=== PATIENT | female | born 1960 | race Caucasian/White ===

== ENCOUNTER → 2017-09-28 | Outpatient (CLI) | payer OTHER | LOC: BMCIMAGING 17:43 | PROVIDERS: ATTEND Family Medicine | DX: M25.512 Pain in left shoulder (principal); M25.522 Pain in left elbow; M25.532 Pain in left wrist; W19.XXXA Unspecified fall, initial encounter; R93.8 Abnormal findings on diagnostic imaging of other specified body structures ==

== ENCOUNTER → 2017-10-10 | Outpatient (CLI) | payer OTHER | LOC: BMCIMAGING 10:15 | PROVIDERS: ATTEND Physician Assistant | DX: R07.81 Pleurodynia (principal); M41.85 Other forms of scoliosis, thoracolumbar region; M41.84 Other forms of scoliosis, thoracic region ==

== ENCOUNTER → 2017-10-24 | Outpatient (CLI) | payer OTHER | LOC: BMCIMAGING 13:13 | PROVIDERS: ATTEND Physician Assistant | DX: S42.262D Displaced fracture of lesser tuberosity of left humerus, subsequent encounter for fracture with routine healing (principal) ==

== ENCOUNTER → 2018-02-13 | Outpatient (CLI) | payer OTHER | LOC: BMCIMAGING 10:11 | PROVIDERS: ATTEND Physician Assistant | DX: S42.262D Displaced fracture of lesser tuberosity of left humerus, subsequent encounter for fracture with routine healing (principal); M75.42 Impingement syndrome of left shoulder ==

== ENCOUNTER 2018-08-03 06:35 | Emergency (ER) | payer OTHER ==
--- NOTE | 2018-08-03 06:43 | EDPHY ---
H & P Stated Complaint: CP, PRESSURE SINCE [place] Time Seen by Provider: 08/03/18 06:42 - Personal History Current Tetanus Diphtheria and Acellular Pertussis (TDAP): Yes - Medical/Surgical History Hx Asthma: No Hx Chronic Respiratory Disease: No Hx Diabetes: No Hx Cardiac Disease: No Hx Renal Disease: No Hx Cirrhosis: No Hx Alcoholism: No Hx HIV/AIDS: No Hx Splenectomy or Spleen Trauma: No Other PMH: hypothyroid, mixed connective tissue disease, SCLERADERMA, PERICARDITIS - Social History Smoking Status: Never smoked Constitutional: Initial Vital Signs Temperature (C) 36.6 C 08/03/18 06:40 Heart Rate 100 08/03/18 06:40 Respiratory Rate 16 08/03/18 06:40 Blood Pressure 139/69 H 08/03/18 06:40 O2 Sat (%) 98 08/03/18 06:40 O2 Delivery Mode Room Air Allergies/Adverse Reactions: aspirin Allergy (Verified 02/18/15 12:44) ibuprofen [From Advil] Allergy (Verified 02/18/15 12:44) Sulfa (Sulfonamide Antibiotics) Allergy (Verified 02/18/15 12:44) Home Medications: Medication Instructions Recorded Cellcept 08/03/18 Colchicine [Colchicine (*)] 0.6 mg PO BID #30 tab 08/03/18 Synthroid 08/03/18 oxyCODONE IR [Oxycodone Ir (*)] 5 - 10 mg PO Q6 PRN #20 tab 08/03/18 Medical Decision Making - Diagnostics Imaging Results: Imaging Impressions Chest X-Ray 08/03/18 07:27 Impression: 1. Suspect airways disease with no superimposed acute abnormality identified. 2. See above report for additional findings. Imaging: Discussed imaging studies w/ manuscripts curator Radiologist, I viewed and interpreted images myself ED Course/Re-evaluation: CHIEF COMPLAINT: Chest pressure HISTORY OF PRESENT ILLNESS: 58-year-old female with a past medical history significant for scleroderma who is on CellCept. She developed chest pain at around midnight. The pain is a pressure in nature. She denies any sharp stabbing pain. She denies any associated symptoms including no shortness of breath, nausea, vomiting, lightheadedness, dizziness, syncope, radiation. The pressures stays right in the center of her chest. It is significantly relieved by leaning forward and worsened when lays back. It does remind her of a prior episode of pericarditis about 5 years ago. Although she has an ibuprofen an aspirin allergy she does take Aleve and took an Aleve around 2 or 3:00 a.m. and it has helped slightly. REVIEW OF SYSTEMS: A comprehensive 10 system review of systems is otherwise negative aside from elements mentioned in the history of present illness and medical decision making. PHYSICAL EXAM: HR, BP, O2 Sat, RR. Temp noted General Appearance: Alert, well hydrated, appropriate, and non-toxic appearing. Head: Atraumatic without scalp tenderness or obvious injury Eyes: Pupils equal, round, reactive to light and accommodation, EOMI, no trauma , no injection. Ears: Clear bilaterally, no perforation, normal landmarks Nose: Atraumatic, no rhinorrhea, clear. Throat: There is no erythema or exudates, no lesions, normal tonsils, mucus membranes moist. Neck: Supple, 2+ carotid upstroke, nontender, no lymphadenopathy. Respiratory: No retractions, no distress, no wheezes, and no accessory muscle use. Lungs are clear to auscultation bilaterally. Cardiovascular: Regular rate and rhythm, no murmurs, friction rub while leaning forward, or gallops. Bilateral carotid, radial, dorsalis pedis, and posterior tibial pulses intact. Good capillary refill all extremities. Gastrointestinal: Abdomen is soft, nontender, non-distended, no masses, no rebound, no guarding, no peritoneal signs. Musculoskeletal: Normal active ROM of all extremities, atraumatic. Neurological: Alert, appropriate, and interactive. The patient has normal DTRs and non-focal cranial nerves, motor, sensory, and cerebellar exam. Skin: No rashes, good turgor, no nodules on palpation. Past medical history: Scleroderma, prior episode of pericarditis Past surgical history: Noncontributory Family history: Noncontributory Social history: , employed, does not abuse tobacco drugs or alcohol DIAGNOSTICS/PROCEDURES/CRITICAL CARE TIME: The 12 lead EKG was interpreted by myself. See hard copy and/or "tracemaster" electronic copy for interpretation. Pathognomonic p.r. Depression in the inferior leads. Sinus. No obvious ischemic changes Chest x-ray: Suspect airways disease with no superimposed acute abnormality identified. Echo: No pleural effusion. Critical care time spent by me, Dr. Ryan, exclusively with this patient was 45 minutes, exclusive of PA time and exclusive of procedures. The organ system at risk was cardiovascular and I gave IVF, pain meds, Colchicine and advised her follow up with her torch solderer and school psychologist to prevent worsening of the patients condition. DIFFERENTIAL DIAGNOSIS: The differential diagnosis for the patient's chest pain included but was not limited to myocardial ischemia, pulmonary embolus, chest wall pain, pericarditis, pleural inflammation, and pulmonary infectious causes. MEDICAL DECISION MAKING: This patient has a fairly classic presentation for pericarditis. She is lacking any prodrome all illness. She has a classic looking EKG regarding p.r. Depression but no diffuse ST elevation. Her symptoms just began about 7 hr ago. I will give this patient 1.2 mg of colchicine and she has already taken Aleve. I will give her 8 mg of Decadron intravenously here. I am checking an ESR and a CRP and a troponin which are all pending. Patient is accompanied at bedside by her . 0725: Patient's troponin is 0. She is still having pain; 1mg IV Dilaudid administered. 0756: Patient's sedimentation rate and CRP are elevated. I will consult the patient's torch solderer at [facility]. 0845: Patient's chest x-ray reveals no acute findings. We are still waiting to hear from the patient's torch solderer. 0855: Reassessed patient and discussed laboratory and imaging studies. She is still in pain; additional 0.5mg IV Dilaudid administered. 0910: I consulted with Dr. Vides, torch solderer from [facility] ([phone]) . Patient will need an Echo; if there s an effusion we will treat her accordingly. She can take Colchicine, NSAID's and her normal medications. 0958: Patient's Echo reveals no pleural effusion. 1000: Reassessed patient and discussed echo findings. I have discussed taking Colchicine and OxyIR as prescribed as well as following up with a school psychologist. Return to precautions provided; patient is comfortable with this plan. 1038: I consulted with Dr. Davis, school psychologist, who reports that there are no acute findings on the Echo. - Data Points Laboratory Results: Laboratory Results 08/03/18 07:00 08/03/18 07:00 08/03/18 08/03/18 08/03/18 07:04 07:00 07:00 WBC 5.39 10^3/uL 10^3/uL (3.80-9.50) RBC 5.27 10^6/uL 10^6/uL (4.18-5.33) Hgb 14.1 g/dL g/dL (12.6-16.3) Hct 44.4 % % (38.0-47.0) MCV 84.3 fL fL (81.5-99.8) MCH 26.8 pg L pg (27.9-34.1) MCHC 31.8 g/dL L g/dL (32.4-36.7) RDW 14.1 % % (11.5-15.2) Plt Count 216 10^3/uL 10^3/uL (150-400) MPV 9.3 fL fL (8.7-11.7) Neut % (Auto) 69.2 % % (39.3-74.2) Lymph % (Auto) 18.7 % % (15.0-45.0) Valley % (Auto) 11.3 % % (4.5-13.0) Eos % (Auto) 0.4 % L % (0.6-7.6) Baso % (Auto) 0.2 % L % (0.3-1.7) Nucleat RBC Rel Count 0.0 % % (0.0-0.2) Absolute Neuts (auto) 3.73 10^3/uL 10^3/uL (1.70-6.50) Absolute Lymphs (auto) 1.01 10^3/uL 10^3/uL (1.00-3.00) Absolute Monos (auto) 0.61 10^3/uL 10^3/uL (0.30-0.80) Absolute Eos (auto) 0.02 10^3/uL L 10^3/uL (0.03-0.40) Absolute Basos (auto) 0.01 10^3/uL L 10^3/uL (0.02-0.10) Absolute Nucleated RBC 0.00 10^3/uL 10^3/uL (0-0.01) Immature Gran % 0.2 % % (0.0-1.1) Immature Gran # 0.01 10^3/uL 10^3/uL (0.00-0.10) ESR 42 MM/HR H MM/HR (0-30) Sodium 138 mEq/L mEq/L (135-145) Potassium 4.0 mEq/L mEq/L (3.5-5.2) Chloride 104 mEq/L mEq/L (97-110) Carbon Dioxide 24 mEq/l mEq/l (22-31) Anion Gap 10 mEq/L mEq/L (6-14) BUN 13 mg/dL mg/dL (7-23) Creatinine 0.7 mg/dL mg/dL (0.6-1.0) Estimated GFR > 60 Glucose 118 mg/dL H mg/dL (70-100) Calcium 9.1 mg/dL mg/dL (8.5-10.4) POC Troponin I 0.00 ng/mL ng/mL (0.00-0.08) C-Reactive Protein 10.4 mg/L H mg/L (<10.0) Medications Given: Discontinued Medications Colchicine (Colchicine) 1.2 mg PO EDNOW ONE Stop: 08/03/18 06:56 Last Admin: 08/03/18 07:03 Dose: 1.2 mg Dexamethasone (Decadron Injection) 8 mg IVP EDNOW ONE Stop: 08/03/18 06:57 Last Admin: 08/03/18 07:03 Dose: 8 mg Hydromorphone HCl (Dilaudid) 1 mg IVP EDNOW ONE Stop: 08/03/18 07:23 Last Admin: 08/03/18 07:28 Dose: 1 mg Hydromorphone HCl (Dilaudid) 0.5 mg IVP EDNOW ONE Stop: 08/03/18 08:57 Last Admin: 08/03/18 09:04 Dose: 0.5 mg Hydromorphone HCl (Dilaudid) 0.5 mg IVP EDNOW ONE Stop: 08/03/18 10:08 Last Admin: 08/03/18 10:08 Dose: 0.5 mg Sodium Chloride (Ns) 500 mls @ 1,000 mls/hr IV EDNOW ONE PRN Reason: Protocol Stop: 08/03/18 07:24 Last Admin: 08/03/18 07:07 Dose: 500 mls Point of Care Test Results: Chemistry 08/03/18 07:04 POC Troponin I 0.00 ng/mL ng/mL (0.00-0.08) Departure - Departure Disposition: Home, Routine, Self-Care Clinical Impression: Pericarditis Qualifiers: Pericarditis type: other type Chronicity: acute Qualified Code(s): I30.8 - Other forms of acute pericarditis Chest pain Qualifiers: Chest pain type: other chest pain Qualified Code(s): R07.89 - Other chest pain Condition: Good Instructions: Chest Pain (ED), Acute Pericarditis (ED) Additional Instructions: 1. Take Colchicine as prescribed. 2. Take OxyIR as prescribed. 3. Follow up with your torch solderer. 4. Return to the Emergency Department for fever, chest pain, shortness of breath , increasing pain or other worsening of condition. 5. Follow up with a school psychologist for further testing, as soon as possible, within one week. 6. As we discussed, it is impossible to fully rule out heart disease as the cause of your chest pain in the emergency department. We would be happy to reevaluate you and observe you in the hospital at any time. Referrals: Alyssa Alamo MD [Primary Care Provider] - As per Instructions Hugh Davis MD [Medical Doctor] - As per Instructions Stand Alone Forms: Work Excuse Prescriptions: Colchicine [Colchicine (*)] 0.6 mg PO BID #30 tab oxyCODONE IR [Oxycodone Ir (*)] 5 - 10 mg PO Q6 PRN #20 tab PRN Reason: Pain, Severe Report Scribed for: Bart Ryan Report Scribed by: Meghna Perrin Date of Report: 08/03/18 Time of Report: 07:26
[2018-08-03] MEDS ORDERED: COLCHICINE 0.6 MG CAP/TAB PO ONE (06:55)
[2018-08-03] MEDS ORDERED: NS 500 ML IV ONE (06:55)
[2018-08-03] MEDS ORDERED: DEXAMETHASONE 10 MG/ML VIAL IVP ONE (06:56)
[2018-08-03 07:12] LABS: PLATELET COUNT 216 10^3/uL (150-400)
[2018-08-03] MEDS ORDERED: HYDROmorphONE/DILAUDID 2 MG/ML INJ IVP ONE ×2 (07:22→08:56)
[2018-08-03] MEDS ORDERED: HYDROmorphONE/DILAUDID 1 MG/ML INJ ONE (10:06)
[2018-08-03] MEDS ORDERED: HYDROmorphONE/DILAUDID 1 MG/ML INJ IVP ONE (10:07)
[2018-08-03 10:17] VITALS: BP 111/66
--- NOTE | 2018-08-03 10:38 | ECHO ---
[email or web address] [address] Main: [phone] Echocardiography Examination Transthoracic Name: JASPER TRENT MR#: Study Date: 08/03/2018 Study Time: 09:40 AM Date of : 1960 Age: 58 year(s) Height: 157.5 cm (62 in.) Weight: 56.7 kg (125 lb.) BSA: 1.57 m2 Gender: Female Examination: Echo Contrast: Image Quality: Adequate Rhythm: Normal sinus rhythm Heart Rate: 86 bpm BP: 111 mmHg/75 mmHg Indication: chest pain; r/o pericardial effusion Procedure Staff Referring Physician: Scale And Skip Car Operator: Galilea Marie [facility] Reading Physician: Hugh Davis MD Requesting Provider: Indication: chest pain; r/o pericardial effusion Measurements Chambers AV/MV Label Value Normal Value Label Value Normal Value IVSd, 2D 0.8 cm (0.6cm - 1.1cm) AV PGmax 4 mmHg LVDd, 2D 3.6 cm (3.9cm - 5.3cm) AV Vmax 1.03 m/s LVDs, 2D 2.3 cm (2.1cm - 4cm) FLETCHER (continuity eq. 2.7 cm2 LVEF, 2D 65 % (54% - 74%) Vmax) LVEF, BP 65 % (55% - 70%) MV A Vmax 0.47 m/s LVEF, MOD2 73 % (55% - 70%) MV DT 109 ms LVEF, MOD4 71 % (55% - 70%) MV E' lateral 0.1 m/s LVOT PGmax 4 mmHg MV E' mean 0.1 m/s LVOT Vmax 0.99 m/s (0.7m/s - 1.1m/s) MV E' septal 0.09 m/s LVOTd 1.9 cm (1.8cm - 2cm) MV E Vmax 0.78 m/s LVPWd, 2D 0.8 cm MV E/A 1.66 RVDd, 2D 3 cm (1.9cm - 3.8cm) MV E/E' lateral 7.8 TAPSE 1.9 cm MV E/E' mean 8.21 LA Area, A2C 15.3 cm2 (0cm2 - 20cm2) MV E/E' septal 8.5 (0.5 - 1.7) LA Volume, A2C 37 ml (22ml - 52ml) TV/PV LA Volume, A4C 23 ml (22ml - 52ml) Label Value Normal Value LA Volume, BP 32 ml (22ml - 52ml) RA Pressure 5 mmHg LAD Index, 2D 1.97 cm/m2 RVSP 32 mmHg LADs, 2D 3.1 cm (2.7cm - 3.8cm) TR Pmax 27 mmHg LAESV index, MOD4 14.6 ml/m2 TR Vmax 2.62 m/s Patient: JASPER TRENT MRN: Study Date: 08/03/2018 Page 1 of 3 09:40 AM RA Area 11.2 cm2 PV PGmax 1 mmHg Additional Vessels PV Vmax, Caliper 0.59 m/s (0.6m/s - 0.9m/s) Label Value Normal Value AoAsc 2.6 cm AoRoot, 2D 2.7 cm (1.4cm - 2.6cm) Conclusions Left Ventricle: CONCLUSIONS:1)Normal LV size and systolic function with a LVEF of 65%.2)Trivial AI with no .3)Mild to moderate MR without MV prolapse.4)Mild TR with estimated normal PA pressures.5)No pericardial effusion noted. Findings Left Ventricle: Left ventricle is normal in size. CONCLUSIONS: 1)Normal LV size and systolic function with a LVEF of 65%. 2)Trivial AI with no . 3)Mild to moderate MR without MV prolapse. 4)Mild TR with estimated normal PA pressures. 5)No pericardial effusion noted. The ejection fraction, measured by Simpsons method, is 65 %. Left ventricle wall thickness is normal. There are no regional wall motion abnormalities. Left ventricular diastolic function parameters are normal. IVS: The septum is intact. Right Ventricle: Normal size right ventricle. Right ventricular wall thickness is normal. Right ventricular systolic function is normal. Left Atrium: The left atrium is normal in size. IAS: Normal appearing atrial septum. Right Atrium: The right atrium is normal in size. Mitral Valve: Normal . Mild to moderate mitral regurgitation. No mitral valve stenosis. Aortic Valve: Aortic leaflets exhibit normal cuspal separation. Trivial aortic regurgitation is present. There is no aortic stenosis. Tricuspid Valve: Tricuspid valve leaflets are normal in appearance and function. Mild tricuspid regurgitation. No tricuspid valve stenosis. Right Ventricular systolic pressure is measured at 32 mmHg. Pulmonary artery pressure normal. Pulmonic Valve: Pulmonic leaflets exhibit normal cuspal separation. No pulmonic valve regurgitation is evident. There is no pulmonic valve stenosis. Aorta: The aortic root size in 2D measures 2.7 cm. The aortic root exhibits normal size. The ascending aorta measures 2.6 cm. Ascending aorta is normal in size. Aorta Measurements AoRoot, 2D is 2.7 cm. IVC: The inferior vena cava is normal in size and course. Pericardium: No pericardial effusion. Patient: JASPER TRENT MRN: Study Date: 08/03/2018 Page 2 of 3 09:40 AM Exam Details Procedure Ordered: Echo Procedure Status: Routine study Image Quality: Adequate Facility Location: Cardiac Echo 1 (No Signature Object) Patient: JASPER TRENT MRN: Study Date: 08/03/2018 Page 3 of 3 09:40 AM [id number]
[2018-08-03] MEDS ORDERED: ONDANSETRON 4MG PREPACK#2 BTL TAKEHOME ONE ×2 (11:14→11:17)
--- NOTE | 2018-08-03 14:46 | CPEKG ---
Test Reason : OPEN Blood Pressure : / mmHG Vent. Rate : 087 BPM Atrial Rate : 088 BPM P-R Int : 142 ms QRS Dur : 087 ms QT Int : 362 ms P-R-T Axes : 064 038 041 degrees QTc Int : 436 ms Sinus rhythm Confirmed by Bart Ryan ([id number]) on 08/03/2018 2:46:32 PM Referred By: Bart Ryan Confirmed By:Bart Ryan
== END 2018-08-03 10:36 | disposition home or self-care (01) ==
DX: R07.89 Other chest pain (principal); E86.9 Volume depletion, unspecified; E03.9 Hypothyroidism, unspecified; M34.9 Systemic sclerosis, unspecified; Z79.899 Other long term (current) drug therapy
CPT/HCPCS: 84484-ER; 96374; J1100; J1170

== ENCOUNTER 2018-11-06 12:06 | Emergency (ER) | payer OTHER | END 2018-11-06 14:07 | disposition home or self-care (01) ==